=== PATIENT | male | born 1995 | race Two or more races ===

== ENCOUNTER 2021-03-06 23:48 | Emergency (ER) | payer MEDICAID ==
[~2021-03-06] VITALS: Ht 177.8 cm; Wt 114.0 kg
[2021-03-07] MEDS ORDERED: ASPIRIN 81MG TABLET PO ONE (03:45)
[2021-03-07] MEDS ORDERED: KETOROLAC 15MG/ML VIAL IM ONE (03:45)
[2021-03-07 04:12] LABS: BASOPHILS % 0.4 % (0.0-2.0); EOSINOPHILS % 3.9 % (0.0-5.0); HEMATOCRIT. 43.9 % (42.0-52.0); HEMOGLOBIN. 15.1 g/dL (14.0-18.0); LYMPHOCYTES % 24.9 % (20.0-50.0); MEAN CORPUSCULAR HEMOGLOBIN 28.8 pg (28.0-32.0); MEAN PLATELET VOLUME 8.6 fl (7.4-10.4); MONOCYTES % 5.5 % (2.0-8.0); NEUTROPHILS % 65.3 % (40.0-76.0); PLATELET 323 x1000/uL (130-400); RED BLOOD CELL COUNT 5.23 mill/uL (4.7-6.1); RED CELL DISTRIBUTION WIDTH 12.9 % (11.6-14.6)
[2021-03-07 04:14] LABS: CHLORIDE 108 mEq/L (98-107)
[2021-03-07 07:12] VITALS: BP 132/76
== END 2021-03-07 07:13 | disposition home or self-care (01) ==
LOC: ER 23:48
DX: R07.89 Other chest pain (principal); F17.210 Nicotine dependence, cigarettes, uncomplicated; Z71.6 Tobacco abuse counseling; Z98.890 Other specified postprocedural states
CPT/HCPCS: 36415; 71045; 71250; 80053; 83880; 84484; 85025; 85379; 93005; 96372; 99285; 99406; J1885; Z7610